=== PATIENT | female | born 1980 | race Caucasian/White ===

== ENCOUNTER 2023-10-26 10:54 | Emergency (ER) | payer OTHER ==
--- NOTE | 2023-10-26 13:19 | RAD REPORT ---
EXAM DESCRIPTION: CT - Head Brain Wo Cont - 10/26/2023 12:57 pm CLINICAL HISTORY: NUMBNESS Headache, drowsiness, CVA symptomology COMPARISON: <Comparisons> TECHNIQUE: All CT scans are performed using dose optimization technique as appropriate and may inclu de automated exposure control or mA/KV adjustment according to patient size. FINDINGS: No intracranial hemorrhage, hydrocephalus or extra-axial fluid collection.No areas of brai n edema or evidence of midline shift. The paranasal sinuses and mastoids are clear. The calvarium is intact. IMPRESSION: No acute intracranial abnormality.
--- NOTE | 2023-10-26 13:21 | RAD REPORT ---
EXAM DESCRIPTION: CT - C Spine Wo Con - 10/26/2023 12:57 pm CLINICAL HISTORY: NUMBNESS/TINGLING Headache, neck pain, neck injury COMPARISON: <Comparisons> FINDINGS: The cervical vertebral body heights and disc spaces are maintained. No evidence of acute cervical spine fracture or subluxation. Prevertebral soft tissues are normal in thickness. IMPRESSION: Negative for acute cervical spine abnormality. All CT scans are performed using dose optimization technique as appropriate and may include automated exposure control or mA/KV adjustment according to patient size.
--- NOTE | 2023-10-26 13:25 | RAD REPORT ---
EXAM DESCRIPTION: RAD - Chest Single View - 10/26/2023 1:17 pm CLINICAL HISTORY: CHEST PAIN Chest pain. COMPARISON: <Comparisons> FINDINGS: Portable technique limits examination quality. The lungs are grossly clear. The heart is normal in size. No displaced fractures. IMPRESSION: No acute intrathoracic process suspected.
[2023-10-26 14:36] LABS: Anion Gap 8.1 mEq/L (5.0-15.0); Potassium 4.1 mEq/L (3.5-5.1); Troponin High Sensitivity 7.1 pg/mL (<58.9)
[2023-10-26] MEDS ORDERED: KETOROLAC 30 MG/ML INJ ONE (14:46)
[2023-10-26 15:17] LABS: Absolute Basophils 0.1 K/uL (0-0.5); Absolute Eosinophils 0.1 K/uL (0-0.5); Absolute Lymphocytes (CBC) 2.5 K/uL (0.7-4.9); Absolute Monocytes 0.7 K/uL (0.1-1.3); Absolute Neutrophil 6.6 K/uL (1.8-8.0); Basophils % 0.9 % (0-1.3); Eosinophils % 1.4 % (0-4.4); Hematocrit 40.8 % (36.0-45.0); Hemoglobin 13.5 g/dL (12.0-15.0); Lymphocytes % 24.9 % (15.3-44.8); MCH 28.1 pg (27.0-35.0); MCHC 33.1 g/dL (32.0-36.0); MCV 84.8 fL (80-100); MPV 7.9 fL (7.6-11.3); Monocytes % 7.2 % (3.3-12.3); Neutrophils % 65.6 % (41.7-73.7); Platelets 387 thou/uL (152-406); RBC Red Blood Cell Count 4.81 M/uL (3.86-4.86); Red Cell Distribution Width 13.5 % (12.1-15.2)
--- NOTE | 2023-10-26 17:32 | EDPHYS ---
Physician Documentation [facility] Name: Terrell Hassan Age: 42 yrs Sex: Female : 1980 Arrival Date: 10/26/2023 Time: 10:54 Bed 18 Private MD: ED Physician Shakeel Hanson HPI: 10/25 17:21 This 42 yrs old Female presents to ER via Ambulatory with complaints of Chest Pressure, ci Shortness Of Breath, Weakness - On left side. 17:21 Patient is a 42-year-old female with PMH depression/anxiety, hypertension who presents ci with left-sided numbness and body aches that began 2 weeks ago. She reports symptoms have been intermittent but progressively getting worse. Denies extremity weakness. Patient also reports an episode of chest pressure and shortness of breath lasted for 2 minutes but has resolved.. Historical: - Allergies: 11:05 No Known Allergies; ll1 - PMHx: 11:05 Hypertensive disorder; depression/anxiety; ll1 - PSHx: 11:05 section; Cholecystectomy; tubes tied; ll1 - Immunization history:: Adult Immunizations up to date. - Infectious Disease History:: Denies. - Social history:: Smoking status: Patient denies any tobacco usage or history of. - History obtained from: sister. ROS: 17:21 Neuro: Positive for numbness, tingling, Negative for gait disturbance, seizure ci activity, speech changes, syncope, tremor, weakness, 17:30 Constitutional: Negative for fever, chills, and weight loss, ci Exam: 17:21 Constitutional: This is a well developed, well nourished patient who is awake, alert, ci and in no acute distress. Head/Face: Normocephalic, atraumatic. Eyes: Pupils equal round and reactive to light, extra-ocular motions intact. Lids and lashes normal. Conjunctiva and sclera are non-icteric and not injected. Cornea within normal limits. Periorbital areas with no swelling, redness, or edema. ENT: Nares patent. No nasal discharge, no septal abnormalities noted. Tympanic membranes are normal and external auditory canals are clear. Oropharynx with no redness, swelling, or masses, exudates, or evidence of obstruction, uvula midline. Mucous membranes moist. Neck: Trachea midline, no thyromegaly or masses palpated, and no cervical lymphadenopathy. Supple, full range of motion without nuchal rigidity, or vertebral point tenderness. No Meningismus. Chest/axilla: Normal chest wall appearance and motion. Nontender with no deformity. No lesions are appreciated. Cardiovascular: Regular rate and rhythm with a normal S1 and S2. No gallops, murmurs, or rubs. Normal PMI, no JVD. No pulse deficits. Respiratory: Lungs have equal breath sounds bilaterally, clear to auscultation and percussion. No rales, rhonchi or wheezes noted. No increased work of breathing, no retractions or nasal flaring. Abdomen/GI: Soft, non-tender, with normal bowel sounds. No distension or tympany. No guarding or rebound. No evidence of tenderness throughout. Back: No spinal tenderness. No costovertebral tenderness. Full range of motion. Skin: Warm, dry with normal turgor. Normal color with no rashes, no lesions, and no evidence of cellulitis. MS/ Extremity: Pulses equal, no cyanosis. Neurovascular intact. Full, normal range of motion. Neuro: Awake and alert, GCS 15, oriented to person, place, time, and situation. Cranial nerves II-XII grossly intact. Motor strength 5/5 in all extremities. Sensory grossly intact. Cerebellar exam normal. Normal gait. Psych: Awake, alert, with orientation to person, place and time. Behavior, mood, and affect are within normal limits. Vital Signs: 11:06 BP 121 / 84; Pulse 68; Resp 18; Temp 98.7; Pulse Ox 100% ; Weight 117.93 kg; Height 5 ll1 ft. 1 in. ; 13:30 BP 131 / 89; Pulse 71; Resp 16; Pulse Ox 100% ; bp 15:30 BP 119 / 75; Pulse 69; Resp 16; Pulse Ox 99% ; bp 11:06 Body Mass Index 49.13 (117.93 kg, 154.94 cm) ll1 NIH Stroke Scale Scores: 17:34 NIHSS Score: 0 ci MDM: 12:00 Patient medically screened. ci 17:21 Differential diagnosis: pneumonia, stable angina, unstable angina, CVA, TIA, cervical ci radiculopathy. HEART Score: History: Slightly Suspicious (0), ECG: Normal (0), Age: < or = 45 years (0), Risk Factors: 1 or 2 risk factors (1), [Hypertension] Troponin: < or = 1 x Normal Limit (0), Total Score = 1. Data reviewed: vital signs, nurses notes, old medical records. Historians other than the Patient: Family Member: Patient's sister at bedside reports patient does not want to be admitted. Care significantly affected by the following chronic conditions: Hypertension. ED course: Patient presents with left-sided upper and lower extremity numbness and pain that has been ongoing for the past 2 weeks. No trauma/falls. Patient is AOx4, CN II through XII is grossly intact, NIH of [address] head, CT cervical spine unremarkable. Patient did endorse 1 episode of chest pressure that has since resolved, cardiac workup is unremarkable. Low suspicion for CVA, TIA, patient has no focal neurodeficits. Low suspicion for ACS, heart score 1, high-sensitivity troponins negative. CXR with no pneumothorax, no pneumonia. Patient was given Toradol for her pain. She is stable for discharge with close outpatient follow-up.. 10/25 12:40 Order name: Basic Metabolic Panel; Complete Time: 15:27 ci 10/25 16:50 Interpretation: NA 134. ci 10/25 12:40 Order name: CBC with Diff; Complete Time: 15:27 ci 10/25 12:40 Order name: Troponin HS; Complete Time: 15:27 ci 10/25 12:40 Order name: XRAY Chest (1 view); Complete Time: 13:40 ci 10/25 16:50 Interpretation: No acute disease. ci 10/25 12:40 Order name: CT Head Brain wo Cont; Complete Time: 13:40 ci 10/25 16:51 Interpretation: No acute disease. ci 10/25 12:40 Order name: CT C Spine; Complete Time: 13:40 ci 10/25 16:51 Interpretation: No acute disease. ci 10/25 12:40 Order name: Cardiac monitoring; Complete Time: 14:12 ci 10/25 12:40 Order name: EKG - Nurse/Tech; Complete Time: 15:20 ci 10/25 12:40 Order name: IV Saline Lock; Complete Time: 14:12 ci 10/25 12:40 Order name: Labs collected and sent; Complete Time: 13:57 ci 10/25 12:40 Order name: O2 Per Protocol; Complete Time: 14:12 ci 10/25 12:40 Order name: O2 Sat Monitoring; Complete Time: 14:12 ci 10/25 14:20 Order name: Labs - recollect needed: recollect lavender top; Complete Time: 14:43 bd Administered Medications: 15:19 Drug: Ketorolac IVP 15 mg IVP once Route: IVP; Site: right antecubital; bp 17:53 Follow up: Response: No adverse reaction bp Disposition Summary: 10/26/23 17:32 Discharge Ordered Notes: Location: Home ci Condition: Stable ci Diagnosis - Chest pain, unspecified ci - Unspecified mononeuropathy of left upper limb - Left-sided ci numbness/tingling(10/26/23 17:32) Followup: ci - With: Private Physician - When: 1 - 2 days - Reason: Recheck today's complaints, Re-evaluation by your physician Discharge Instructions: - Discharge Summary Sheet ci - Neuropathic Pain ci - Nonspecific Chest Pain, Adult, [id number] ci - Electromyoneurogram ci Forms: - Medication Reconciliation Form ci - Thank You Letter ci - Antibiotic Education ci - Prescription Opioid Use ci - Patient Portal Instructions ci - Leadership Thank You Letter ci NIH Stroke Scale - NIH Stroke Score Date: 10/26/2023 Time: 17:34 Total Score = 0 10. Dysarthria (speech clarity - read or repeat words) - 0(Normal) 11. Extinction and Inattention (visual/tactile/auditory/spatial/personal) - 0(No abnormality) 1a. Level of Consciousness (LOC) - 0(Alert) 1b. Level of Consciousness (LOC) (Month \T\ Age) - 0(Both) 1c. LOC Commands (Open \T\ Closes Eyes/Strategic Advisor) - 0(Both) 2. Best Gaze (Lateral Gaze Paresis) - 0(Normal) 3. Visual Field Loss - 0(No visual loss) 4. Facial Palsy - 0(Normal) 5a. Left Arm: Motor (10-second hold) - 0(No drift) 5b. Right Arm: Motor (10-second hold) - 0(No drift) 6a. Left Leg: Motor (5-second hold - always test supine) - 0(No drift) 6b. Right Leg: Motor (5-second hold - always test supine) - 0(No drift) 7. Limb Ataxia (finger/nose \T\ heel/chao - test with eyes open) - 0(Absent) 8. Sensory Loss (pinprick arms/legs/face) - 0(Normal) 9. Best Language: Aphasia (description/naming/reading) - 0(No aphasia) Initials: ci Signatures: Dispatcher [employer] EDMS Amy aly Lalo Lamb RN RN Tobin Bernal RN RN ll1 Shakeel Hanson ci Corrections: (The following items were deleted from the chart) 12:41 12:41 Chest Single View+RAD.RAD.BRZ ordered. EDMS EDMS 12:41 12:41 Head Brain Wo Cont+CT.RAD.BRZ ordered. EDMS EDMS 12:41 12:41 C Spine Wo Con+CT.RAD.BRZ ordered. EDMS EDMS 17:32 17:32 Unspecified mononeuropathy of left upper limb ci ci 17:36 17:21 The patient was not given aspirin in the Emergency Department. ci ci 17:38 17:21 ED course: Patient presents with left-sided upper and lower extremity ci numbness and pain that has been ongoing for the past 2 weeks. No trauma/falls. Patient is AOx4, CN II through XII is grossly intact, NIH of [address] head, CT cervical spine unremarkable. Patient did endorse 1 episode of chest pressure that has since resolved, cardiac workup is unremarkable. Patient was given Toradol for her pain. She is stable for discharge with close outpatient follow-up.. ci
--- NOTE | 2023-10-26 17:32 | ER ---
Nurse's Notes [facility] Name: Terrell Hassan Age: 42 yrs Sex: Female : 1980 Arrival Date: 10/26/2023 Time: 10:54 Bed 18 Private MD: Diagnosis: Chest pain, unspecified;Unspecified mononeuropathy of left upper eohv-[id number]-[id number] numbness/tingling Presentation: 10/25 11:06 Chief complaint: Patient states: L sided body numbness/tingling off/on for 2 weeks. ll1 Lasting longer than usual today. + SOB. No fevers. Coronavirus screen: Client denies travel out of the [place] in the last 14 days. At this time, the client does not indicate any symptoms associated with coronavirus-19. Ebola Screen: Patient denies travel to an Ebola-affected area in the 21 days before illness onset. Initial Sepsis Screen: Does the patient meet any 2 criteria? No. Patient's initial sepsis screen is negative. Does the patient have a suspected source of infection? No. Patient's initial sepsis screen is negative. Risk Assessment: Do you want to hurt yourself or someone else? Patient reports no desire to harm self or others. Onset of symptoms was October 13, 2023. 11:06 Method Of Arrival: Ambulatory ll1 11:06 Acuity: GABI 3 ll1 Triage Assessment: 11:10 General: Appears in no apparent distress. comfortable, obese, Behavior is cooperative, bp appropriate for age, anxious. Pain: Denies pain. Cardiovascular: Reports chest pain. Respiratory: Airway is patent Respiratory effort is even, unlabored. Historical: - Allergies: 11:05 No Known Allergies; ll1 - PMHx: 11:05 Hypertensive disorder; depression/anxiety; ll1 - PSHx: 11:05 section; Cholecystectomy; tubes tied; ll1 - Immunization history:: Adult Immunizations up to date. - Infectious Disease History:: Denies. - Social history:: Smoking status: Patient denies any tobacco usage or history of. - History obtained from: sister. Screenin:54 [facility] ED Fall Risk Assessment (Adult) History of falling in the last 3 months, bp including since admission No falls in past 3 months (0 pts). Abuse screen: Denies threats or abuse. Denies injuries from another. Nutritional screening: No deficits noted. Tuberculosis screening: No symptoms or risk factors identified. Assessment: 11:10 General: SEE TRIAGE NOTE. bp 13:30 Reassessment: Patient appears in no apparent distress at this time. Patient is alert, bp oriented x 3, equal unlabored respirations, skin warm/dry/pink. 15:30 Reassessment: Patient appears in no apparent distress at this time. Patient is alert, bp oriented x 3, equal unlabored respirations, skin warm/dry/pink. 17:52 Reassessment: Patient appears in no apparent distress at this time. Patient states bp symptoms have improved. Vital Signs: 11:06 BP 121 / 84; Pulse 68; Resp 18; Temp 98.7; Pulse Ox 100% ; Weight 117.93 kg; Height 5 ll1 ft. 1 in. ; 13:30 BP 131 / 89; Pulse 71; Resp 16; Pulse Ox 100% ; bp 15:30 BP 119 / 75; Pulse 69; Resp 16; Pulse Ox 99% ; bp 11:06 Body Mass Index 49.13 (117.93 kg, 154.94 cm) ll1 NIH Stroke Scale Scores: 17:34 NIHSS Score: 0 ci ED Course: 10:57 Patient arrived in ED. im 11:05 Shakeel Hanson is Attending Physician. ci 11:08 Triage completed. ll1 12:56 CT Head Brain wo Cont In Process Unspecified. EDMS 12:56 CT C Spine In Process Unspecified. EDMS 13:18 XRAY Chest (1 view) In Process Unspecified. EDMS 13:35 Arm band placed on Patient placed in an exam room, on a stretcher. ll1 13:56 Initial lab(s) drawn, by me, sent to lab. Missed attempt(s): 22 gauge in right upper ll1 arm. Bleeding controlled, band aid applied, catheter tip intact. 14:09 Tobin Machado, RN is Primary Nurse. ll1 14:10 Lalo Kirk, MALACHI is Primary Nurse. bp 14:12 Basic Metabolic Panel Sent. bp 14:12 CBC with Diff Sent. bp 14:12 Troponin HS Sent. bp 14:43 CBC with Diff Sent. bp 14:43 Inserted saline lock: 22 gauge in right antecubital area, using aseptic technique. bp Blood collected. 16:54 Patient has correct armband on for positive identification. Provided Education on: N/A. bp Client placed on continuous cardiac and pulse oximetry monitoring. NIBP monitoring applied. 17:52 No provider procedures requiring assistance completed. IV discontinued, intact, bp bleeding controlled, No redness/swelling at site. Pressure dressing applied. O2 via ROOM AIR. Administered Medications: 15:19 Drug: Ketorolac IVP 15 mg IVP once Route: IVP; Site: right antecubital; bp 17:53 Follow up: Response: No adverse reaction bp Medication: 17:52 VIS not applicable for this client. bp Outcome: 17:32 Discharge ordered by . ci 17:52 Discharged to home ambulatory, bp 17:52 Condition: stable 17:52 Discharge instructions given to patient, Instructed on discharge instructions, follow up and referral plans. Demonstrated understanding of instructions, follow-up care, 17:53 Patient left the ED. bp NIH Stroke Scale - NIH Stroke Score Date: 10/26/2023 Time: 17:34 Total Score = 0 10. Dysarthria (speech clarity - read or repeat words) - 0(Normal) 11. Extinction and Inattention (visual/tactile/auditory/spatial/personal) - 0(No abnormality) 1a. Level of Consciousness (LOC) - 0(Alert) 1b. Level of Consciousness (LOC) (Month \T\ Age) - 0(Both) 1c. LOC Commands (Open \T\ Closes Eyes/Community Health Education Coordinator) - 0(Both) 2. Best Gaze (Lateral Gaze Paresis) - 0(Normal) 3. Visual Field Loss - 0(No visual loss) 4. Facial Palsy - 0(Normal) 5a. Left Arm: Motor (10-second hold) - 0(No drift) 5b. Right Arm: Motor (10-second hold) - 0(No drift) 6a. Left Leg: Motor (5-second hold - always test supine) - 0(No drift) 6b. Right Leg: Motor (5-second hold - always test supine) - 0(No drift) 7. Limb Ataxia (finger/nose \T\ heel/chao - test with eyes open) - 0(Absent) 8. Sensory Loss (pinprick arms/legs/face) - 0(Normal) 9. Best Language: Aphasia (description/naming/reading) - 0(No aphasia) Initials: ci Signatures: Dispatcher [employer] EDGrant Bernalian, RN RN Tobin Bernal RN RN ll1 Jazzmine Oates [email or web address] Corrections: (The following items were deleted from the chart) 13:35 11:05 Arm band placed on Patient placed in an exam room, on a stretcher, ll1 ll1
[2023-10-26 18:26] VITALS: BP 119/75; TEMP 98.7; O2SAT 99
--- NOTE | 2023-10-27 12:35 | EKG ---
Test Date: 2023-10-26 Test Time: 15:43:33 [employer] Correspondent: [place] MEASUREMENT RESULTS: Intervals: Rate: 62 WY: 152 QRSD: 78 QT: 406 QTc: 412 [place]: P: 47 WY: 152 QRS: 44 T: 30 INTERPRETIVE STATEMENTS: Normal sinus rhythm Normal ECG Compared to ECG 10/26/2023 15:42:17 Sinus bradycardia no longer present Electronically Signed On 10-27-23 12:33:15 CDT by Issa Crandall
--- NOTE | 2023-10-27 12:36 | EKG ---
Test Date: 2023-10-26 Test Time: 15:42:17 [place] Sawyer: [place] MEASUREMENT RESULTS: Intervals: Rate: 59 MI: 170 QRSD: 92 QT: 410 QTc: 405 [place]: P: 71 MI: 170 QRS: 50 T: 32 INTERPRETIVE STATEMENTS: Sinus bradycardia Otherwise normal ECG No previous ECG available for comparison Electronically Signed On 10-27-23 12:33:16 CDT by Issa Crandall
== END 2023-10-26 17:53 | disposition home or self-care (01) ==
LOC: ER 10:54
DX: R07.9 Chest pain, unspecified (principal); G56.92 Unspecified mononeuropathy of left upper limb; I10 Essential (primary) hypertension
CPT/HCPCS: 36415; 70450; 71045; 72125; 80048; 84484; 85025; 93005; 96374; 99285